=== PATIENT | male | born 1985 | race Two or more races ===

== ENCOUNTER 2019-11-05 23:24 | Emergency (ER) | payer OTHER ==
[~2019-11-05] VITALS: Ht 165.1 cm; Wt 83.9 kg
[2019-11-05 23:30] VITALS: BP 115/71
== END 2019-11-06 01:03 ==
LOC: ER 23:29
DX: S81.802A Unspecified open wound, left lower leg, initial encounter (principal); S81.801A Unspecified open wound, right lower leg, initial encounter; Z02.89 Encounter for other administrative examinations; X58.XXXA Exposure to other specified factors, initial encounter; Y93.89 Activity, other specified; Y92.89 Other specified places as the place of occurrence of the external cause; Y99.8 Other external cause status
CPT/HCPCS: 99283; A6403